=== PATIENT | female | born 1950 | race Caucasian/White ===

== ENCOUNTER 2017-07-15 07:57 | Day surgery (SDC) | payer MEDICARE, OTHER ==
[~2017-07-15 07:57] MED LIST: RINGER'S SOLUTION,LACTATED 1,000 ML IV PRN
[2017-07-15] MEDS ORDERED: RINGER'S SOLUTION,LACTATED 1,000 ML IV PRN (09:38)
[2017-07-15 11:20] VITALS: BP 118/78
--- NOTE | 2017-07-16 07:15 | OR ---
Operative Report - Dictated Report Narrative: OPERATIVE REPORT DATE OF OPERATION: 07/15/2017 PREOPERATIVE DIAGNOSIS: History of colon polyps POSTOPERATIVE DIAGNOSIS: Sigmoid diverticulosis. External hemorrhoids OPERATION: Colonoscopy SURGEON: Dania Graham MD ANESTHESIA: BONNIE Mehta CRNA INDICATIONS FOR PROCEDURE: Patient is a 66-year-old female referred by Dr. Hanley. She had a tubular adenoma in 2006, a tubular adenoma with high-grade dysplasia in 2008, and melanosis coli with diverticulosis in 2010. She is currently asymptomatic. There is no family history of colon cancer. Her twin sister has diverticulosis FINDINGS: Moderate sigmoid diverticulosis otherwise normal colonoscopy to cecum. No melanosis NARRATIVE OF PROCEDURE: The patient was identified in the holding area, and prior to the administration of anesthetic, a multidisciplinary timeout was observed. With the patient in the left lateral position and after the administration of intravenous sedation, the perineum was inspected. There was no evidence of pilonidal disease or skin breakdown. The external appearance of the anus was remarkable for internal and external hemorrhoids with evidence of bleeding from the prep. Sphincter tone was good. The flexible fiberoptic colonoscope was inserted into the rectum which was insufflated with air. The rectal mucosa and submucosal vascular pattern appeared normal, the prep was seen to be complete. The scope was advanced through the sigmoid colon, which contained numerous large non-impacted noninflamed diverticular openings. The scope was advanced up the descending colon, and around the splenic flexure where the triangular haustral architecture of the transverse colon was seen. The scope was advanced across the transverse colon, around the hepatic flexure to the cecum, where the confluence of tenia and the ileocecal valve were identified. The mucosa at this level appeared normal. The scope was then slowly withdrawn in a circular fashion so that all aspects of colonic mucosa were inspected. The proximal colon was somewhat capacious and character but the colon was normal in course. The haustral architecture appeared well preserved throughout with no evidence of external compression. The mucosa and submucosal vascular pattern appeared normal, specifically there was no gross evidence to suggest colitis or inflammatory bowel disease and no AV malformations were seen. The diverticulosis was moderate in degree and confined primarily to the sigmoid colon. No polyps were encountered. The scope was gradually withdrawn to the level of the rectum. As much insufflated air as possible was removed. The scope was withdrawn from the patient and the procedure terminated. The patient tolerated the anesthetic and procedure well without complication and was transferred back to the ambulatory surgery area awake and in stable condition. The patient remained stable throughout a period of postoperative observation. She denied abdominal discomfort, was able to tolerate by mouth intake, and was up without assistance. I shared the operative findings with the patient and her and she was given copies of the photographs which appear in the medical record. She was discharged home with instructions not to engage in hazardous activity today, but may resume normal activity tomorrow, and advance diet as tolerated. She is to continue those medications as listed in the history and physical exam. A pamphlet on diverticular disease was reviewed with her and given to her. It was recommended that she use and titrate Benefiber given her diverticulosis and hemorrhoids. RECOMMENDATION: Given a polyp history with high-grade dysplasia and a 5 year follow-up would seem reasonable.
== END 2017-07-15 07:58 | disposition home or self-care (01) ==
LOC: AMB 07:57
PROVIDERS: ATTEND Surgery
PROC: 0DJD8ZZ Inspection of Lower Intestinal Tract, Via Natural or Artificial Opening Endoscopic (ICD-10-PCS; principal; 2017-07-15 10:00)
DX: Z12.11 Encounter for screening for malignant neoplasm of colon (principal); K57.30 Diverticulosis of large intestine without perforation or abscess without bleeding; K64.4 Residual hemorrhoidal skin tags; E78.00 Pure hypercholesterolemia, unspecified; K58.9 Irritable bowel syndrome, unspecified; J45.909 Unspecified asthma, uncomplicated; Z68.34 Body mass index [BMI] 34.0-34.9, adult; Z86.010 Personal history of colon polyps

== ENCOUNTER 2019-12-23 08:00 | Inpatient (IN) ==
[2020-03-16] MEDS ORDERED: ceFAZolin SODIUM 1 GM VIAL IV PRN (06:00)
[2020-03-16] MEDS ORDERED: RINGER'S SOLUTION,LACTATED 1,000 ML IV PRN (06:00)
[2020-03-16] MEDS ORDERED: TRANEXAMIC ACID 1,000 MG in NORMAL SALINE 100 ML IV PRN (06:00)
[2020-03-16] MEDS ORDERED: MORPHINE SULFATE 15 MG TABLET.SA PO PRN (06:00)
[2020-03-16] MEDS ORDERED: PROPOFOL VIAL IV ONE (06:56)
[2020-03-16] MEDS ORDERED: ONDANSETRON HCL/PF 2 MG/ML VIAL ONE (06:56)
[2020-03-16] MEDS ORDERED: BUPIVACAINE HCL/EPINEPHRINE/PF 30 ML VIAL IJ ONE (06:56)
[2020-03-16] MEDS ORDERED: MIDAZOLAM HCL/PF 5 MG/ML VIAL ONE (06:56)
--- NOTE | 2020-03-16 07:33 | ANES ---
Anesthesia Pre Procedure Eval Vitals/Labs: Last Vital Signs Temp 36.5 C 03/16/20 06:43 Pulse 66 03/16/20 06:43 Resp 18 03/16/20 06:43 BP 114/76 03/16/20 06:43 Pulse Ox 99 03/16/20 06:43 HOME MEDICATIONS Aspirin [Aspirin EC] 81 mg PO DAILY 12/06/16 [Last Taken 03/15/20] Albuterol Sulfate [Proair Hfa] 2 puff IH Q4H PRN 07/05/17 [Last Taken Unknown] Meloxicam [Mobic] 15 mg PO DAILY 07/05/17 [Last Taken 03/15/20] Wheat Dextrin [Benefiber] 1 tbs PO DAILY 07/05/17 [Last Taken 03/15/20] atorvastatin 40 mg tablet 40 mg PO DAILY tab 06/12/18 [Last Taken 03/15/20] cholecalciferol (vitamin D3) 25 mcg (1,000 unit) capsule 2,000 unit PO DAILY cap 12/02/18 [Last Taken 03/15/20] cyanocobalamin (vitamin B-12) 1,000 mcg capsule 1,000 mcg PO DAILY 12/02/18 [Last Taken 03/15/20] ferrous sulfate 325 mg (65 mg iron) tablet,delayed release 325 mg PO DAILY tab 12/02/18 [Last Taken 03/15/20] lisinopril 20 mg tablet 10 mg PO DAILY 12/02/18 [Last Taken 03/16/20] omega 2-rxj-noo-fish oil 1,000 mg (120 mg-180 mg) capsule 4 cap PO DAILY cap 12/02/18 [Last Taken 03/15/20] Calc/D3/Mag/Zn/Zachary/Marcelino/Drake [Calcium 600 mg Plus Vit D Tab] 1 ea PO DAILY 05/31/19 [Last Taken 03/15/20] acetaminophen 650 mg tablet,extended release 650 mg PO Q12H PRN 08/04/19 [Last Taken 03/15/20] Cetirizine HCl [Zyrtec] 10 mg PO DAILY PRN 03/16/20 [Last Taken Unknown] Hydrocortisone [Anusol-Hc] 30 gm TOPICAL PRN PRN 03/16/20 [Last Taken Unknown] Allergies/Adverse Reactions: Allergies Allergy/AdvReac Type Severity Reaction Status Date / Time meperidine [From Demerol] Allergy Severe Swelling Verified 11/26/19 13:21 of Face acetaminophen Allergy Intermediate hives Verified 03/16/20 06:34 [From Darvocet-N] Penicillins Allergy Intermediate Hives and Verified 11/26/19 13:21 Swelling propoxyphene Allergy Intermediate hives Verified 03/16/20 06:34 [From Darvocet-N] Sulfa (Sulfonamide Allergy Intermediate Hives and Verified 11/26/19 13:21 Antibiotics) Swelling cat dander Allergy Mild nasal s/s Verified 03/16/20 06:34 dog dander Allergy Mild nasal Verified 03/16/20 06:34 stuffiness hydrocodone [From Vicodin] Allergy Mild Hives, Verified 03/16/20 06:34 Loopy oxycodone HCl [From Percocet] Allergy Mild Hives, Verified 11/26/19 13:21 NAUSEA, LOOPY prednisone Allergy Unknown Unknown, Verified 03/16/20 06:34 mother and father had allergy Furoate Allergy Severe Trouble Uncoded 03/16/20 06:34 Breathing - Planned Procedure Planned Procedure: Left Reverse Total Shoulder Arthroplasty Medication List Reviewed:: Yes Allergies Verified: Yes Medical History (Last Reviewed 03/16/20 @ 07:31 by Harry Guzman CRNA) Acute hemorrhoid Calcium deficiency Iron deficiency Vitamin B12 deficiency Hernia hiatal hernia surgery 02/[facility] Allergic rhinitis Onset Date: Unknown due to pollen Asthma Onset Date: Unknown DJD (degenerative joint disease) Onset Date: Unknown Diverticulosis Onset Date: Unknown Hemorrhoids Onset Date: Unknown external Hypercholesterolemia Onset Date: Unknown Hypertension Irritable bowel syndrome Onset Date: Unknown Appendicitis Onset Date: Unknown Benign neoplasm of colon Onset Date: Unknown Carpal tunnel syndrome of right wrist Onset Date: Unknown Ovarian cyst Onset Date: Unknown Rotator cuff tear Onset Date: 07/03/13 left Shoulder fracture Onset Date: 2006 left Shoulder pain, bilateral Onset Date: Unknown Surgical History (Last Reviewed 03/16/20 @ 07:31 by Harry Guzman CRNA) History of repair of hiatal hernia Onset Date: ~2018 History of appendectomy Onset Date: 1971 History of arthroscopic surgery of shoulder Onset Date: 07/03/13 Psimitue-ayiy-sqrctk tenotomymini open rtc repair History of bilateral tubal ligation Onset Date: 04/1991 History of carpal tunnel release Onset Date: 08/1997 right History of section Onset Date: 04/1991 History of colonoscopy Onset Date: 07/15/17 Caropreso-04/2007 tubular adenoma. 08/2009 tubular adenoma w/high grade dysplasia. 08/21/11-pancolonic melanosis, sigmoid diverticulosis. Bagan 07/15/17-sigmoid diverticulosis, external hemorrhoids. Recheck 5 yrs. History of esophagogastroduodenoscopy (EGD) Onset Date: 12/08/18 Bagan-clotest negative, mild benign reactive gastropathy/chemical gastritis. Large hiatal hernia. History of ovarian cystectomy Onset Date: 1971 right Family History (Last Reviewed 03/16/20 @ 07:31 by Harry Guzman CRNA) Sister Cancer bladder Sister Hypothyroidism Sister Hypertension Sister Alive and well COPD (chronic obstructive pulmonary disease) Sister Alive and well Father , age 90-CHF CAD (coronary artery disease) Myocardial infarction Mother , age 80-medically induced lymphoma CABG Diabetes "Medical induced" DM Osteoporosis Depression Cancer lymphoma Son Alive and well Son Alive and well - Family Anesthesia History Family History:: no untoward family reactions to anesthesia, no familial bleeding tendencies, no family history of clotting disorders, no family history of premature - Airway/Neck/Teeth Within Normal Limits:: Yes Teeth Condition: intact Neck Exam: full range of motion Mallampatti Score: 2 Thyromental (T-M) distance: > 6 cm Mandibulo Hyoid distance: > 3 cm - Respiratory Respiratory Physical: lungs clear Smoking Status: Never smoker Sleep Apnea currently treated: No Sleep Apnea by current assessment: No - Cardiovascular Cardiac History: [place], hypertension, other - anemia Tolerate Activity: Fair Heart Sounds: S1 & S2, Regular - Gastrointestinal NPO since: 0 - Anesthesia Assessment and Plan ASA Class: PS, III Anesthesia Type Plan: General LMA, Block - interscalene block for post op pain relief
--- NOTE | 2020-03-16 07:35 | HP ---
Chief Complaint - Chief Complaint Date of Service: 03/16/20 Time of Service: 07:32 Chief Complaint: Chronic left shoulder rotator cuff deficiency and pain History of Present Illness: Ms. Krause is a 69-year-old female who is previously undergone surgeries on her left shoulder for rotator cuff tears and redeveloped tears with advanced arthrosis. She was scheduled undergo reverse total shoulder arthroplasty in the past however was placed on hold secondary to the COVID pandemic. She is here today to undergo the the previously planned surgery. She denies any COVID symptoms and denies any significant changes since she was seen by her primary care physician underwent a history and physical in the past. She has failed therapy, medications, passage of time, and previous surgeries. Medical History (Last Reviewed 03/16/20 @ 07:33 by Sidney Stone MD) Acute hemorrhoid Calcium deficiency Iron deficiency Vitamin B12 deficiency Hernia hiatal hernia surgery [facility] Allergic rhinitis Onset Date: Unknown due to pollen Asthma Onset Date: Unknown DJD (degenerative joint disease) Onset Date: Unknown Diverticulosis Onset Date: Unknown Hemorrhoids Onset Date: Unknown external Hypercholesterolemia Onset Date: Unknown Hypertension Irritable bowel syndrome Onset Date: Unknown Appendicitis Onset Date: Unknown Benign neoplasm of colon Onset Date: Unknown Carpal tunnel syndrome of right wrist Onset Date: Unknown Ovarian cyst Onset Date: Unknown Rotator cuff tear Onset Date: 07/03/13 left Shoulder fracture Onset Date: 2006 left Shoulder pain, bilateral Onset Date: Unknown Surgical History: Surgical History (Last Reviewed 03/16/20 @ 07:33 by Sidney Stone MD) History of repair of hiatal hernia Onset Date: ~2018 History of appendectomy Onset Date: 1971 History of arthroscopic surgery of shoulder Onset Date: 07/03/13 Okzpzfao-hrfx-vmoouv tenotomymini open rtc repair History of bilateral tubal ligation Onset Date: 04/1991 History of carpal tunnel release Onset Date: 08/1997 right History of section Onset Date: 04/1991 History of colonoscopy Onset Date: 07/15/17 Caropreso-04/2007 tubular adenoma. 08/2009 tubular adenoma w/high grade dysplasia. 08/21/11-pancolonic melanosis, sigmoid diverticulosis. Gladys 07/15/17-sigmoid diverticulosis, external hemorrhoids. Recheck 5 yrs. History of esophagogastroduodenoscopy (EGD) Onset Date: 12/08/18 Bagan-clotest negative, mild benign reactive gastropathy/chemical gastritis. Large hiatal hernia. History of ovarian cystectomy Onset Date: 1971 right Family History: Family History (Last Reviewed 03/16/20 @ 07:33 by Sidney Stone MD) Sister Cancer bladder Sister Hypothyroidism Sister Hypertension Sister Alive and well COPD (chronic obstructive pulmonary disease) Sister Alive and well Father , age 90-CHF CAD (coronary artery disease) Myocardial infarction Mother , age 80-medically induced lymphoma CABG Diabetes "Medical induced" DM Osteoporosis Depression Cancer lymphoma Son Alive and well Son Alive and well Social History: (Last Reviewed 03/16/20 @ 07:33 by Sidney Stone MD) Social History: Marital status: household members: other number of children: 2 current occupational status: retired Service: No Tobacco: Smoking Status: Never smoker Alcohol: alcohol intake: never Substance Use: substance use type: does not use Dietary Habits: caffeine: Yes caffeine comment: occ. Personal Safety: victim of physical abuse: No victim of emotional abuse: No Review Of Systems (GEN) - Review of Systems Generalized/Overall Review: Present: No Symptoms Reported Immunizations: IMMUNIZATION HX Immunizations Up to Date Yes History of Influenza Vaccine Yes Hx Pneumococcal Vaccination Yes Allergies/Adverse Reactions: Allergies Allergy/AdvReac Type Severity Reaction Status Date / Time meperidine [From Demerol] Allergy Severe Swelling Verified 11/26/19 13:21 of Face acetaminophen Allergy Intermediate hives Verified 03/16/20 06:34 [From Darvocet-N] Penicillins Allergy Intermediate Hives and Verified 11/26/19 13:21 Swelling propoxyphene Allergy Intermediate hives Verified 03/16/20 06:34 [From Darvocet-N] Sulfa (Sulfonamide Allergy Intermediate Hives and Verified 11/26/19 13:21 Antibiotics) Swelling cat dander Allergy Mild nasal s/s Verified 03/16/20 06:34 dog dander Allergy Mild nasal Verified 03/16/20 06:34 stuffiness hydrocodone [From Vicodin] Allergy Mild Hives, Verified 03/16/20 06:34 Loopy oxycodone HCl [From Percocet] Allergy Mild Hives, Verified 11/26/19 13:21 NAUSEA, LOOPY prednisone Allergy Unknown Unknown, Verified 03/16/20 06:34 mother and father had allergy Furoate Allergy Severe Trouble Uncoded 03/16/20 06:34 Breathing Home Medications: HOME MEDICATIONS Aspirin [Aspirin EC] 81 mg PO DAILY 12/06/16 [Last Taken 03/15/20] Albuterol Sulfate [Proair Hfa] 2 puff IH Q4H PRN 07/05/17 [Last Taken Unknown] Meloxicam [Mobic] 15 mg PO DAILY 07/05/17 [Last Taken 03/15/20] Wheat Dextrin [Benefiber] 1 tbs PO DAILY 07/05/17 [Last Taken 03/15/20] atorvastatin 40 mg tablet 40 mg PO DAILY tab 06/12/18 [Last Taken 03/15/20] cholecalciferol (vitamin D3) 25 mcg (1,000 unit) capsule 2,000 unit PO DAILY cap 12/02/18 [Last Taken 03/15/20] cyanocobalamin (vitamin B-12) 1,000 mcg capsule 1,000 mcg PO DAILY 12/02/18 [Last Taken 03/15/20] ferrous sulfate 325 mg (65 mg iron) tablet,delayed release 325 mg PO DAILY tab 12/02/18 [Last Taken 03/15/20] lisinopril 20 mg tablet 10 mg PO DAILY 12/02/18 [Last Taken 03/16/20] omega 4-okv-zag-fish oil 1,000 mg (120 mg-180 mg) capsule 4 cap PO DAILY cap 12/02/18 [Last Taken 03/15/20] Calc/D3/Mag/Zn/Zachary/Marcelino/[place] [Calcium 600 mg Plus Vit D Tab] 1 ea PO DAILY 05/31/19 [Last Taken 03/15/20] acetaminophen 650 mg tablet,extended release 650 mg PO Q12H PRN 08/04/19 [Last Taken 03/15/20] Cetirizine HCl [Zyrtec] 10 mg PO DAILY PRN 03/16/20 [Last Taken Unknown] Hydrocortisone [Anusol-Hc] 30 gm TOPICAL PRN PRN 03/16/20 [Last Taken Unknown] Exam - Exam Vital Signs: Vital Signs - Last Taken Temp 36.5 C 03/16/20 06:43 Pulse 66 03/16/20 06:43 Resp 18 03/16/20 06:43 BP 114/76 03/16/20 06:43 Pulse Ox 99 03/16/20 06:43 Comprehensive Narrative: 03/16/20 07:34 Left upper extremity: Neurovascular intact, pain and crepitance with range of motion, well-healed surgical incisions, no skin lesions, motor is intact in all planes although weak with forward flexion and abduction 4 out of 5 Constitutional: Present: Alert, Oriented x3 Respiratory: Present: lungs clear Cardiovascular/Chest: Present: regular rate, rhythm Diagnostic Studies: Previous films reviewed: Left shoulder rotator cuff deficient arthropathy Assessment/Plan - Assessment/Plan (1) Rotator cuff arthropathy Assessment: Plan is undergo left shoulder reverse total arthroplasty. Questions were answered and COVID consent was signed. Extremity was marked and the plan is to proceed with surgical intervention. Problem: Chronic Qualifiers: Laterality: left
[2020-03-16] MEDS ORDERED: CLINDAMYCIN IN 0.9 % SOD CHLOR 600 MG/50 ML BAG IV SCH (07:45)
[2020-03-16] MEDS: CLINDAMYCIN IN 0.9 % SOD CHLOR 900 MG/50 ML BAG IV ONE ×2 (08:15→11:40)
[2020-03-16] MEDS ORDERED: ZOLPIDEM TARTRATE 5 MG TABLET PO PRN (10:15)
[2020-03-16] MEDS ORDERED: MORPHINE SULFATE 10 MG/0.5 ML SYRINGE PO PRN (10:15)
[2020-03-16] MEDS ORDERED: MAG HYDROX/ALUMINUM HYD/SIMETH 30 ML UDC PO PRN (10:15)
[2020-03-16] MEDS ORDERED: ONDANSETRON HCL/PF 2 MG/ML VIAL IV PRN (10:15)
[2020-03-16] MEDS ORDERED: DEXTROSE 5%-LACTATED RINGERS 1,000 ML IV PRN (10:15)
[2020-03-16] MEDS ORDERED: diphenhydrAMINE HCL 50 MG/ML VIAL IV PRN (10:15)
[2020-03-16] MEDS ORDERED: MORPHINE SULFATE 2 MG/ML DISP.SYRIN IV PRN (10:15)
[2020-03-16] MEDS ORDERED: MAGNESIUM HYDROXIDE 30 ML UDC PO PRN (10:15)
--- NOTE | 2020-03-16 10:15 | OR ---
Operative Report - Dictated Report Narrative: DATE OF PROCEDURE: 03/16/2020 PHYSICIAN: Sidney Stone MD INSTRUMENT MAKER AND REPAIRER: Gerber Viramontes PA-C (provided and essential set of skilled, educated hands that assisted with transfer, positioning, prepping, draping, manipulation, retraction, placement of implants, irrigation, closure wounds, and application of dressings all which cannot be performed by the available surgical crew) PREOPERATIVE DIAGNOSIS: Left rotator cuff deficient shoulder arthrosis. POSTOPERATIVE DIAGNOSIS: Left rotator cuff deficient shoulder arthrosis. OPERATIONS AND PROCEDURES: Left reverse total shoulder arthroplasty. ANESTHESIA: General plus regional. COMPLICATIONS: None. DRAINS: None. SPECIMENS: Bone. ESTIMATED BLOOD LOSS: 75 mL. RETAINED IMPLANTS: 1. DePuy Delta Xtend cementless metaglene. 2. Delta Xtend glenosphere, 38 mm standard. 3. Delta Xtend size 8 modular humeral MEAD-coated cementless stem. 4. Size 1 left modular eccentric epiphysis MEAD-coated cementless. 5. Delta Xtend standard polyethylene size 38 plus 6 mm. 6. Metaglene locking screws, 42 mm inferior and 30 mm superior in length. 7. Nonlocking metaglene screws, 18 mm x 1 posterior. INDICATIONS FOR PROCEDURE: Mrs. Krause is a 69-year-old female with significant past history of rotator cuff tears and deficiency. She had treated these conservatively and had an irreparable rotator cuff with some progression of arthrosis of the shoulder and difficulty with activities of daily living in pain. She was seen in clinic and had failed conservative measures. She wished to proceed with surgical treatment. The risks, benefits, and alternatives were discussed in clinic, including the risk of , blood clots, bleeding, infection, nerve/tendon/blood vessel injury, malposition of components, failure of components, wear or limited range of motion, stiffness, and need for additional procedures, and she wished to proceed. Consent was obtained here in the clinic. DESCRIPTION OF PROCEDURE: After marking the correct extremity in the preoperative holding area, the patient was taken to the operating room. A timeout was performed. IV antibiotics consisting of clindamycin secondary to penicillin anaphylaxis were administered prior to procedure. The regional followed by general anesthetic was induced by the nurse utility forester at my request. She was then transitioned to beach chair position with all bony prominences well padded. The head in neutral, legs with SCDs and supported,and the nonoperative arm supported. The surgical arm was prescrubbed with alcohol then prepped and draped in the standard sterile fashion and the skin was covered with ioban. A deltopectoral incision was made and blunt dissection was carried down through the skin. The cephalic vein was identified, protected, and retracted. We then went through the deltopectoral interval, exposing the proximal humerus. It was noted that there was no rotator cuff, supraspinatus and infraspinatus tendon, or teres minor tendon. The subscapularis was intact as well as the biceps. A tag suture was placed in subscapularis tendon as well as the anterior capsule, and this was elevated off the anterior humerus passing along the bicipital groove and into the rotator cuff interval, exposing the proximal humerus. This was the n freed off the proximal humerus. A biceps tenotomy was performed and the shoulder was dislocated. The humeral head was noted to show signs of arthrosis. Next, an entry drill was placed down the humerus centered on the longitudinal axis entering off just onto the articular surface on the humeral head. Next were serial reamers up to the size 8 were utilized, which gave good overall cortical contact. Next, a proximal humeral head cut was performed. We made the cut at approximately 10 degrees of retroversion. This appeared to resect an appropriate amount of humeral head. This was then pinned into place and an oscillating saw was utilized to cut this humeral head, protecting the surrounding soft tissues. We then placed a cap over the proximal humerus and turned our attention to the glenoid. The soft tissues were then elevated off the humeral neck as well as circumferentially around the glenoid. The glenoid was exposed. The remaining biceps tendon and labrum were resected. Using tractors, the glenoid was exposed and a guidewire was placed just posterior and inferior to the center of the glenoid. This was made so that it directed slightly superiorly but otherwise perpendicular to the glenoid on the axillary plane. Protecting the surrounding soft tissues, a reamer was utilized in order to remove the remaining cartilage. A ironer hand was utilized in order to resect the superior cartilage, and this resulted in a good overall appearance of the glenoid. The center drill lug hole was drilled and had good circumferential bone. The metaglene was then impacted into place and oriented for placement of screws along the mid plane in the superior and inferior quadrants of the glenoid as well as anterior to posterior screws. These were drilled and had appropriate overall length of screws on the superior and inferior metaglene screws. Good purchase was obtained with a 30 mm screw superiorly and 42 mm screw inferiorly. The anterior and posterior screws were drilled and a 18mm posterior nonlocking screw was placed. We then locked the superior and inferior screws into place. This gave good overall compression down to the glenoid with flat overall appearance and an appropriate alignment. We returned our attention to the proximal humerus. The proximal humeral reaming guide was placed for an eccentric reamer. This was utilized in order to prepare the proximal humerus. The trial stem was assembled on the back table and impacted into place. After placing the trial stem, we then returned to the metaglene. The glenosphere was then secured to the metaglene, impacted, and tightened ensuring that this was seated completely. We then returned to the humeral component and placed the trials of polyethylene inserts and found that the 6mm gave good overall longitudinal traction with no gapping. The shoulder was able to reach 140 degrees of forward flexion and 130 degrees of abduction, external rotation was to 90 degrees and with fulcrum and armpit were unable to hinge the joint out of place, and there was no essentially no gapping of the polyethylene off the humeral head nor any signs of impingement on the glenoid neck. We felt that these were the appropriately placed and sized implants. We then dislocated the shoulder, removed the trial implants, thoroughly irrigated the humerus, impacted the final implants into place in the prior determined retroversion. The trial polyethylene was utilized again and was noted that the actual stem and the trial stem were equal in tension, and thus the final polyethylene was impacted into place. The shoulder was reduced, again noted to be stable, was then thoroughly irrigated. The subscapularis and biceps tendon were secured to the surrounding soft tissues using a #1 Ethibond suture. The deltopectoral interval was closed with #0 Vicryl. The deep tissues were then closed with #0 Vicryl, subcutaneous with 3-0 vicryl, and the skin with brody. Xeroform, 4 x 4, ABD, soft roll, and full arm Jeremias was applied. The patient was placed in a shoulder sling, awoken, and transferred to postanesthesia care in stable condition. All sponge, needle, and instrument counts were correct prior to closing the wounds. We will obtain postoperative films and be admitted to the floor for postoperative pain control, IV antibiotics, and starting of physical therapy. I anticipate a one to two night hospital stay.
[2020-03-16] MEDS ORDERED: ALBUTEROL SULFATE 2.5 MG/0.5 ML VIAL.NEB IH PRN (10:20)
[2020-03-16] MEDS ORDERED: LORATADINE 10 MG TABLET PO PRN (10:20)
--- NOTE | 2020-03-16 10:33 | ANES ---
Post Anesthesia Discharge - Transfer of Care Transfer of Care handoff given to nurse: Yes - Discharge from PACU Discharge from PACU when meets criteria: Yes - Awake and comfortable.
--- NOTE | 2020-03-16 10:34 | ANES ---
Anesthesia Procedure Note Procedure Note: ANESTHESIA PROCEDURE NOTE Date of Procedure: 03/16/2020 Time of procedure: 7:40 AM. Performed by: LAZARO Aparicio CRNA, MSN Bagel Maker: Makayla Cole RN. Preprocedure diagnosis: Post shoulder surgery pain. Post procedure diagnosis: Same. Procedure: Left interscalene nerve block. Indications: Post left shoulder surgery pain relief. Findings: See below. Details of the procedure: The patient was brought to OR #4 and placed in semi- Fowlers position. The patient was prepped with chlorhexidine and using ultrasound guidance the left interscalene segment of the brachial plexus was identified and lidocaine 1% was infiltrated to the skin of the intended injection site. Under ultrasound guidance the interscalene nerve bundles were approached with visualization of a 2inch stimulator needle visualized unde ultrasound until a shoulder/arm response was identified on nerve stimulator. Once the stimulator response was effective at less than 0.5 mV and greater than 0.3 mV the bracheal plexus nerves at this level were surrounded with 30 mL bupivacaine 0.5% with 1-200,000 epinephrine. Please see radiology/ultrasound report for details and retained images of the procedure. EBL: 0 Fluids: N/A. Specimen: N/A. Post procedure condition: The patient tolerated the procedure well. No complications were noted. Thank you for this consultation. Harry Guzman CRNA, ARNP, MSN
--- NOTE | 2020-03-16 10:58 | ANES ---
Post Anesthesia Assessment - Vital Signs Vitals: Last Vital Signs Temp 36.2 C 03/16/20 10:45 Pulse 77 03/16/20 10:45 Resp 18 03/16/20 10:45 BP 95/56 03/16/20 10:45 Pulse Ox 95 03/16/20 10:45 Airway Patency: Normal - Mental Status Level Of Consciousness: Awake, Alert, Appropriate - Pain Level Pain Score: 0 - N/V Assessment Nausea/Vomiting Presence: None Dehydration:: No
[2020-03-16] MEDS: CLINDAMYCIN IN 0.9 % SOD CHLOR 900 MG/50 ML BAG IV SCH ×2 (16:31→23:30)
[2020-03-16] MEDS: ASPIRIN 325 MG TABLET.DR PO SCH (20:17)
[2020-03-16] MEDS: MORPHINE SULFATE 15 MG TABLET.SA PO SCH (20:20)
[2020-03-16] MEDS ORDERED: SENNOSIDES/DOCUSATE SODIUM 1 TAB TABLET PO SCH (21:00)
[2020-03-16] MEDS ORDERED: ROSUVASTATIN CALCIUM 20 MG TABLET PO SCH (21:00)
[2020-03-16] MEDS: ACETAMINOPHEN 500 MG TABLET PO PRN (22:56)
[2020-03-16] MEDS ORDERED: NORMAL SALINE 1,000 ML IV PRN (23:19)
[2020-03-17] MEDS: ACETAMINOPHEN 500 MG TABLET PO PRN (04:58)
[2020-03-17 06:29] LABS: Hematocrit 34.7 % (37.0-47.0); Hemoglobin 11.1 gm/dL (12.5-16.0); Mean Corpuscular Hemoglobin 30.1 pg (27-31); Platelet Count 142 K/mm3 (150-450); Red Blood Count 3.69 M/mm3 (4.2-5.4); Red Cell Distribution Width 12.7 % (11.5-14.0); White Blood Count 7.9 K/mm3 (4.0-10.5)
[2020-03-17 06:39] LABS: Anion Gap 11.4 mmol/L (6.8-13.8); BUN/Creatinine Ratio 21.8 (9.0-21.6); Calcium * 8.3 mg/dL (7.9-10.9); Carbon Dioxide 24.6 mmol/L (24-32.6); Estimated Creat Clear 40.2
[2020-03-17] MEDS: MORPHINE SULFATE 15 MG TABLET.SA PO SCH (08:57)
[2020-03-17] MEDS: CLINDAMYCIN IN 0.9 % SOD CHLOR 900 MG/50 ML BAG IV SCH (08:57)
[2020-03-17] MEDS: ASPIRIN 325 MG TABLET.DR PO SCH (08:58)
[2020-03-17] MEDS ORDERED: LISINOPRIL 10 MG TABLET PO SCH (09:00)
[2020-03-17] MEDS ORDERED: CHOLECALCIFEROL 1,000 UNIT CAPSULE PO SCH (09:00)
[2020-03-17] MEDS ORDERED: CALCIUM CARBONATE/VITAMIN D3 1 TAB TABLET PO SCH (09:00)
[2020-03-17] MEDS ORDERED: OMEGA-3 FATTY ACIDS 1 CAP CAPSULE PO SCH (09:00)
[2020-03-17] MEDS ORDERED: FERROUS SULFATE 325 MG TABLET PO SCH (09:00)
[2020-03-17] MEDS ORDERED: CYANOCOBALAMIN 1,000 MCG TABLET PO SCH (09:00)
--- NOTE | 2020-03-17 12:16 | DS ---
(1) Rotator cuff arthropathy Problem: Chronic Qualifiers: Laterality: left (2) Status post reverse total arthroplasty of left shoulder Problem: Acute (3) Hypertension Problem: Chronic (4) Hyperlipemia Problem: Chronic (5) Asthma Problem: Chronic Date of Discharge:: 03/17/20 Hospital Course: Mrs. Krause was admitted to the floor after undergoing left reverse total shoulder arthroplasty. Tolerated this well. Was admitted to the floor postoperatively for 24 hours of IV antibiotics, pain control, and occupational and physical therapy. OT and PT were consulted to assist with activities of daily living and ambulation. Was made non-weightbearing. Pain was initially controlled with IV regimen. This was transitioned to oral once tolerating a by mouth intake. Was resumed on home diet and medications. Aspirin, SCDs were utilized for DVT prophylaxis. Vital signs remained stable to the hospital course. She did have some hypotension overnight which resolved with IV fluids. Labs were obtained which showed a final hemoglobin of 11.1 grams. Pre-op hemoglobin was 13.7. She was asymptomic and thus the acute blood loss anemia will be monitored and treated clinically. BMP was reviewed and was stable. Physical examination throughout the hospital course showed an extremity that had sensation that was intact to light touch, palpable pulses, a benign wound, motor intact to the hand and wrist. Once an oral pain regimen was tolerated and physical therapy goals were met, it was felt that they were stable for discharge to home. Instructions: Continue with non-weightbearing with range of motion limited to the postoperative protocol. Do not bathe or soak the wound. Keep the wound clean and dry and cover with dry gauze and tape. Cover wound while showering. Continue with physical therapy. Resume home diet. Report any fever over 101.5 Fahrenheit, uncontrolled pain, increased drainage, foul odor of drainage, new or increased calf pain or shortness of breath, or any other significant complaints. A 325mg twice daily aspirin will be continued for 30 days. No driving until instructed otherwise. Follow up in approximately 2-3 weeks. Procedures Performed: see notes below List Procedures: Left reverse total shoulder arthroplasty Results and Findings: Lab Pending Results 03/17/20 06:15: WBC 7.9, RBC 3.69 L, Hgb 11.1 L, Hct 34.7 L, MCV 94.0, MCH 30.1, MCHC 32.0, RDW 12.7, Plt Count 142 L, MPV 10.0 03/17/20 06:15: Sodium 140, Plasma Sodium 140, Potassium 4.0, Chloride 108 H, Carbon Dioxide 24.6, Anion Gap 11.4, BUN 19, Creatinine 0.87, Est GFR (Non-Af Amer) 69, BUN/Creatinine Ratio 21.8 H, Random Glucose 107, Calcium 8.3 Discharge Location: Home Disposition: Home self-care Condition: Good Discharge Activity: Non-Weight bearing Discharge Diet: General/regular food Referrals: Harry Hanley MD [Primary Care Provider] - Additional Patient Instructions (free text): Physical Therapy scheduled at [facility] on SaturdayMarch 18 at 9:15 am. Follow-up in the office with Dr. Stone on March 24 at 2:45pm. Prescriptions (Any new or edited meds): Aspirin [Aspirin Enteric Coated] 325 mg PO BID #60 tablet.dr Transmission Status: Sent to [facility] #[id number] Morphine Sulfate 1 - 2 tab PO Q4H PRN #50 tab PRN Reason: Pain Transmission Status: Received by [facility] #[id number] Morphine Sulfate [Ms Contin] 15 mg PO Q12H #10 tablet.sa Transmission Status: Received by [facility] #[id number] Sennosides/Docusate Sodium [Senokot-S] 2 tab PO HS #60 tab Transmission Status: Pending to [facility] #[id number] Complete Home Medications List: Complete Home Medication List: Albuterol Sulfate [Proair Hfa] 2 puff IH Q4H PRN 07/05/17 Meloxicam [Mobic] 15 mg PO DAILY 07/05/17 Wheat Dextrin [Benefiber] 1 tbs PO DAILY 07/05/17 atorvastatin 40 mg tablet 40 mg PO DAILY tab 06/12/18 cholecalciferol (vitamin D3) 25 mcg (1,000 unit) capsule 2,000 unit PO DAILY cap 12/02/18 cyanocobalamin (vitamin B-12) 1,000 mcg capsule 1,000 mcg PO DAILY 12/02/18 ferrous sulfate 325 mg (65 mg iron) tablet,delayed release 325 mg PO DAILY tab 12/02/18 lisinopril 20 mg tablet 10 mg PO DAILY 12/02/18 omega 2-nud-udc-fish oil 1,000 mg (120 mg-180 mg) capsule 4 cap PO DAILY cap 12/02/18 Calc/D3/Mag/Zn/Zachary/Marcelino/[place]er [Calcium 600 mg Plus Vit D Tab] 1 ea PO DAILY 05/31/19 acetaminophen 650 mg tablet,extended release 650 mg PO Q12H PRN 08/04/19 Cetirizine HCl [Zyrtec] 10 mg PO DAILY PRN 03/16/20 Hydrocortisone [Anusol-Hc] 30 gm TOPICAL PRN PRN 03/16/20 Aspirin [Aspirin Enteric Coated] 325 mg PO BID #60 tablet. 03/17/20 Morphine Sulfate 1 - 2 tab PO Q4H PRN #50 tab 03/17/20 Morphine Sulfate [Ms Contin] 15 mg PO Q12H #10 tablet.sa 03/17/20 Sennosides/Docusate Sodium [Senokot-S] 2 tab PO HS #60 tab 03/17/20 Amb Orders for Discharge: PT Evaluation and Treatment* Facility: [facility], Location: Rehabilitation Services Forms: Patient Portal Registration
[2020-03-17 15:08] VITALS: BP 147/79
== END 2020-03-17 15:53 | disposition home or self-care (01) | DRG 483 ==
LOC: MS 03-16 06:23
PROVIDERS: ADMIT Orthopaedic Surgery; ATTEND Orthopaedic Surgery
DX: I10 Essential (primary) hypertension; M19.012 Primary osteoarthritis, left shoulder; M75.121 Complete rotator cuff tear or rupture of right shoulder, not specified as traumatic; Z96.619 Presence of unspecified artificial shoulder joint; E78.00 Pure hypercholesterolemia, unspecified
CPT/HCPCS: 36415; 73030; 80048; 85027; 97110; 97161; 97165; 97530; J2405